=== PATIENT | female | born 2000 | race Caucasian/White ===

== ENCOUNTER → 2023-01-06 06:50 | Outpatient (CLI) | payer BC, SELFPAY ==
--- NOTE | 2023-01-06 | DI.ECHO.S_ITS ---
[facility]---------+ [facility] +---------+ : : [address] : [address] : : : : [id number] : : : : Phone: [phone] +---------+ Echocardiogram Report + + :Name: SYLVIA PULIDO Study Date: 01/06/2023 Height: 62 in : :[facility] ReadingLocation: Weight: 123 lb: : Gender: Female BSA: 1.6 m2 : :: 2000 Age: 22 yrs BP: 85/56 mmHg: :Reason For Study: SYNCOPE AND COLLAPSE : :Ordering Physician: AUBRIE, : :WILLIAMS Performed By: Gertrudis Quintero : :Referring: WILLIAMS ALFRED : + + Interpretation Summary 1) Normal left ventricular thickness, size, wall motion, and systolic function (EF 55-60%). 2) Normal right ventricular size and function. 3) No significant valvular abnormalities. 4) No prior Echo available for comparison. Procedure: A two-dimensional transthoracic echocardiogram with color flow and Doppler was performed. The study quality was technically adequate. There is no prior echocardiogram noted for this patient. The patient was in sinus bradycardia with heart rates between 53-67 bpm during the exam. Left Ventricle: The left ventricle is normal in size and wall thickness. The ejection fraction is estimated to be 55-60%. Left ventricular systolic function is normal. Right Ventricle: The right ventricle is normal in size and function. Atria: The left atrial size is normal. Right atrial size is normal. There is no Doppler evidence for an interatrial shunt. Mitral Valve: The mitral valve is normal in structure and function. There is mild mitral regurgitation. Aortic Valve: The aortic valve is trileaflet. The aortic valve opens well. There is no aortic valve stenosis. No aortic regurgitation is present. Tricuspid Valve: The tricuspid valve is normal in structure and function. There is mild tricuspid regurgitation. The right ventricular systolic pressure is estimated to be at least 23 mmHg based on an estimated right atrial pressure of 3 mm Hg. Pulmonic Valve: The pulmonic valve leaflets are thin and pliable; valve motion is normal. There is a trace or physiologic amount of pulmonic regurgitation. Great Vessels: The aortic root is normal size. The dimensions of the ascending aorta are normal. The IVC is of normal diameter and collapses greater than 50% with a sniff. This suggests a low right atrial pressure of 3 mm Hg. Pericardium/ Pleura There is no pericardial effusion. There is no pleural effusion. MMode/2D Measurements & Calculations LVIDd: 4.7 cm LVOT diam: 1.9 cm LVIDs: 3.0 cm Ao root diam: 2.9 cm FS: 36.3 % asc Aorta Diam: 2.8 cm EPSS: 0.54 cm IVSd: 0.59 cm LVPWd: 0.65 cm LV hicks. diameter/BSA (cm/m^2): 3.0 LV sys. diameter/BSA (cm/m^2): 1.9 LA A2 area: 14.9 cm2 RA long axis: 3.7 cm LA A4 area: 12.8 cm2 RA area: 9.8 cm2 LA length (vol): 4.3 cm RA vol: 21.8 ml LA vol: 37.9 ml RA : 14.0 ml/m2 LA vol index: 24.4 ml/m2 RVD1 (basal): 3.1 cm RVD2 (mid): 2.8 cm TAPSE: 2.0 cm Doppler Measurements & Calculations Ao V2 max: 141.7 cm/sec LVOT Max Ignacio: 78.3 cm/sec Ao V2 mean: 98.3 cm/sec LV V1 max P.5 mmHg Ao max P.0 mmHg LV V1 VTI: 17.2 cm Ao mean P.3 mmHg KELLY(I,D): 1.5 cm2 Ao V2 VTI: 30.7 cm KELLY(V,D): 1.5 cm2 sev ratio: 0.56 KELLY indexed to BSA (cm^2/m^2): 1.00 MV E max ignacio: 98.6 cm/sec TR max ignacio: 223.0 cm/sec MV A max ignacio: 30.5 cm/sec TR max P.9 mmHg MV E/A: 3.2 PA V2 max: 85.4 cm/sec Med Peak E' Ignacio: 15.2 cm/sec PA V2 mean: 62.7 cm/sec E/E' med: 6.5 PA mean P.7 mmHg Lat Peak E' Ignacio: 18.1 cm/sec PA pr(Accel): 3.6 mmHg E/E' lat: 5.5 E/e' average: 6.0 MV dec time: 0.20 sec SV(LVOT): 47.5 ml Reading Physician:01:18 PM
== END ==
PROVIDERS: Referring Provider Internal Medicine; Visit Provider Internal Medicine
DX: I08.1 Rheumatic disorders of both mitral and tricuspid valves (principal); R06.09 Other forms of dyspnea; R94.31 Abnormal electrocardiogram [ECG] [EKG]; R55 Syncope and collapse; R00.2 Palpitations
CPT/HCPCS: 93306